=== PATIENT | female | born 1980 | race Hispanic/Latino ===

== ENCOUNTER 2017-07-13 22:20 | Inpatient (IN) ==
[2017-07-13] MEDS ORDERED: RINGER'S SOLUTION,LACTATED 1,000 ML IV ONE (22:43)
[2017-07-13] MEDS ORDERED: OXYTOCIN/DEXTROSE 5%-WATER 30 UNITS/500 ML BAG IV ONE (22:43)
[2017-07-13] MEDS ORDERED: PENICILLIN G POTASSIUM 5 MILLIONUNT in DEXTROSE 5 % IN WATER 100 ML IV ONE ×2 (22:43)
[2017-07-14] MEDS: PENICILLIN G POTASSIUM 2.5 MILLIONUNT in DEXTROSE 5 % IN WATER 100 ML IV SCH ×12 (03:03→22:45)
[2017-07-14] MEDS: METHYLDOPA 250 MG TABLET PO SCH ×2 (07:08→10:59)
[2017-07-14] MEDS ORDERED: INSULIN REGULAR HUMAN REC 100 UNITS in NORMAL SALINE 100 ML IV PRN (10:27)
[2017-07-14] MEDS ORDERED: HUM INSULIN NPH/REG INSULIN HM 100 UNIT/ML VIAL SC ONE (11:00)
[2017-07-14] MEDS ORDERED: NALOXONE HCL 1 MG/1 ML SYRG IV PRN (13:12)
[2017-07-14] MEDS ORDERED: ONDANSETRON HCL/PF 2 MG/ML VIAL IV PRN (13:12)
[2017-07-14] MEDS ORDERED: fentaNYL CITRATE/PF 50 MCG/ML AMPUL IT SCH (13:15)
--- NOTE | 2017-07-14 13:24 | OR ---
Anesthesia Pre Procedure Eval Date of Service: 07/14/17 Pre Procedure Evaluation: Last Vital Signs Temp Pulse 104 H 07/14/17 07:08 Resp BP 161/96 07/14/17 07:08 Pulse Ox Anesthesia Pre Procedure Evaluation Heart Rate: 112 Blood Pressure: 139/85 Temperature: 37C Respiratory Rate: 18 SaO2: 97 DATE: 07/14/2017 TIME: 1320 INDICATIONS: Active labor, labor pain PAST MEDICAL HISTORY: Primipara patient in active labor requesting labor analgesia History of GERD: No History of smoking:No History of sleep apnea:No EXAM: Heart regular; lungs clear ASSESSMENT OF MEDICAL STATUS: Appropriate candidate for labor analgesia PLANNED PROCEDURE: Combination spinal epidural for labor analgesia Home Medications: HOME MEDICATIONS Iron,Carbonyl/Ascorbic Acid [Fe C Tablet] 65 mg PO DAILY 07/13/17 [Last Taken ] Cmb#95/Iron/FA/Dha [ + Dha Combo Pack] 1 tab PO DAILY 07/13/17 [Last Taken 07/12/17] metFORMIN HCL [Metformin HCl] 500 mg PO BID 07/13/17 [Last Taken 07/13/17 16:00] Ascorbic Acid [Vitamin C] 1,000 mg PO DAILY 07/14/17 [Last Taken 07/13/17] Insulin NPH Human Isophane [Humulin N] 55 units SQ DAILY 07/14/17 [Last Taken 19:30] Methyldopa 500 mg PO TID 07/14/17 [Last Taken 07/13/17 16:00]
--- NOTE | 2017-07-14 13:44 | OR ---
Anesthesia Procedure Note - Anesthesia Procedure Note Date of Service: 07/14/17 Narrative: Vital Signs - Last Taken Temp Pulse 104 H 07/14/17 07:08 Resp BP 161/96 07/14/17 07:08 Pulse Ox 07/14/17 13:41 ANESTHESIA PROCEDURE NOTE Date of Procedure: 07/14/2017 Time of procedure: 1320. Performed by: EDGAR Medeiros CRNA, MSN Certified Anesthesiologist Assistant: Mell FROST. Preprocedure diagnosis: Active labor, labor pain. Post procedure diagnosis: Same. Procedure:Epidural for labor analgesia L34. Indications: Labor pain. Findings: See below. Details of the procedure: The patient was placed on the side of the bed in sitting positionand prepped with DuraPrep then draped in a sterile fashion. Lidocaine 1% was infiltrated to the skin and subcutaneous tissues at the level of theL3,4 interspace. An 18-gauge Touhy needle was used to approach the epidural space with loss of resistance technique. Once loss of resistance was achieved a 27-gauge spinal needle was passed through the epidural needle and CSF was contacted. After CSF returned, 20 mcg of fentanyl was injected in the spinal needle was removed the epidural catheter was then threaded approximately 4 cm in the epidural needle was removed. The catheter was taped in place and after careful aspiration 3 mL of 1.5% lidocaine with 1-200,000 epinephrine was injected without change in maternal heart rate or sensorium. . EBL: Minimal. Fluids: N/A. Specimen: N/A. Post procedure condition: The patient tolerated the procedure well with good relief. No complications were noted. Thank you for this consultation. Allen Curiel CRNA, BOWL TOPPER, MSN
[2017-07-14] MEDS: BUPIVACAINE HCL/0.9 % NACL/PF 250 ML EP PRN (13:47)
[2017-07-14] MEDS ORDERED: RINGER'S SOLUTION,LACTATED 1,000 ML IV PRN (15:10)
[2017-07-14] MEDS: DEXTROSE 5%-LACTATED RINGERS 1,000 ML IV PRN (17:11)
[2017-07-14 17:27] LABS: Urine Bilirubin Negative (NEGATIVE); Urine Blood 50 /ul (NEGATIVE); Urine Ketone Negative (NEGATIVE); Urine Nitrite Negative (NEGATIVE); Urine Protein Negative (NEGATIVE); Urine Specific Gravity <=1.005 SP.GR. (1.005-1.010); Urine Urobilinogen Normal (NORMAL)
[2017-07-14 17:28] LABS: Urine Appearance Clear (CLEAR); Urine Color Yellow
--- NOTE | 2017-07-14 18:44 | PN ---
Subjective - Date and Time Seen Date: 07/14/17 Time: 18:35 Objective - Vitals Vitals: Last Vital Signs Temp Pulse 104 H 07/14/17 07:08 Resp BP 161/96 07/14/17 07:08 Pulse Ox Patient comfortable with epidural Vital signs stable. Blood sugar 91 at 1645 Pitocin at 4 mu/min. FHT: 130 baseline, reassuring. Earlier this afternoon patient had late decelerations and prolonged deceleration requiring Pitocin to be shut off. Contractions difficult to assess until IUPC placed, appeared to be q 2-3 min Cervix: 3/90/-3 - no change since 14:30. PROM at 2145 last p.m. Impression: Intrauterine at 37-2/7 weeks Pitocin augmentation of labor for premature ruptured membranes. Gestational diabetes - well controlled on insulin. Chronic hypertension - well controlled on antihypertensives. Morbid obesity - stable. GBS positive - s/p PCN x 5 doses Plan: IUPC placed because of difficulty monitoring contractions and patient's poor progress. Will monitor closely for signs of chorioamnionitis/ endometritis. Adjust Pitocin as necessary to ensure adequate contractions. - Abnormal Lab Findings Abnormal Lab Findings: Abnormal Lab Results 07/14/17 Range/Units Unknown Urine Blood 50 H (NEGATIVE) /ul Cauti Physician Documentation - Urinary Catheter Management Urethral ([place]) Date of Insertion: 07/14/17 Time of Insertion: 14:45
[2017-07-15] MEDS: DEXTROSE 5%-LACTATED RINGERS 1,000 ML IV PRN (01:38)
[2017-07-15] MEDS: PENICILLIN G POTASSIUM 2.5 MILLIONUNT in DEXTROSE 5 % IN WATER 100 ML IV SCH ×4 (02:50→06:15)
[2017-07-15] MEDS: BUPIVACAINE HCL/0.9 % NACL/PF 250 ML EP PRN (06:29)
[2017-07-15] MEDS ORDERED: ACETAMINOPHEN 500 MG TABLET PO ONE (06:30)
--- NOTE | 2017-07-15 08:44 | PN ---
Herb Note - Interim Date: 07/15/17 Time: 08:38 Narrative: 07/15/17 08:38 Patient is now complete. Vital signs stable tracing showed some questionable late decelerations earlier but now reassuring Because patient is exhausted we'll let her labor down and then began trial pushing.
[2017-07-15] MEDS: METHYLDOPA 250 MG TABLET PO SCH ×2 (12:10→17:11)
[2017-07-15] MEDS ORDERED: SENNOSIDES 8.6 MG TABLET PO PRN (13:26)
[2017-07-15] MEDS ORDERED: oxyCODONE HCL/ACETAMINOPHEN 1 TAB TABLET PO PRN ×2 (13:26)
[2017-07-15] MEDS ORDERED: BENZOCAINE/MENTHOL 81 SPRAY CAN TP PRN (13:26)
[2017-07-15] MEDS ORDERED: BISACODYL 10 MG SUPP.RECT RC PRN (13:26)
[2017-07-15] MEDS ORDERED: OXYTOCIN/DEXTROSE 5%-WATER 30 UNITS/500 ML BAG IV ONE (13:26)
[2017-07-15] MEDS ORDERED: GLYCERIN/WITCH HAZEL LEAF 40 APPL BOX TP PRN (13:26)
[2017-07-15] MEDS ORDERED: HYDROCORTISONE 30 APPL TUBE TP PRN (13:26)
[2017-07-15] MEDS ORDERED: INSULIN LISPRO 100 UNITS/ML VIAL SC SCH (13:45)
[2017-07-15] MEDS: IBUPROFEN 800 MG TABLET PO PRN (13:53)
--- NOTE | 2017-07-15 14:05 | OR ---
Operative Report - Dictated Report Narrative: Spontaneous vaginal delivery of viable male at 1105 on 07/15/2017 with Apgars 6 and 9, weighing 3498 g. Nuchal cord 3 with body cord 1. Cord clamping delayed approximately 1 minute Placenta delivered complete, intact, with three vessel cord Estimated blood loss: 150 mL Anesthesia: epidural Lacerations: 4 cm second degree vaginal laceration repaired with 0 Vicryl and 3- 0 Vicryl Rapide. 3 cm first-degree right labial laceration repaired with 4-0 Vicryl. Small arterial bleeding on the first-degree vaginal laceration required 2 figure -of-eight sutures to control bleeding.
[2017-07-15] MEDS ORDERED: INSULIN NPH HUMAN ISOPHANE 100 UNITS/ML VIAL SC SCH (17:00)
[2017-07-15] MEDS: metFORMIN HCL 500 MG TABLET PO SCH (17:10)
[2017-07-15] MEDS: DOCUSATE SODIUM 100 MG CAPSULE PO SCH (20:06)
[2017-07-16] MEDS: IBUPROFEN 800 MG TABLET PO PRN (08:33)
[2017-07-16] MEDS: DOCUSATE SODIUM 100 MG CAPSULE PO SCH ×2 (08:33→21:02)
[2017-07-16] MEDS: METHYLDOPA 250 MG TABLET PO SCH ×3 (08:34→17:55)
[2017-07-16] MEDS: metFORMIN HCL 500 MG TABLET PO SCH ×2 (08:35→17:54)
[2017-07-16] MEDS: FERROUS SULFATE PO SCH (08:36)
--- NOTE | 2017-07-16 08:59 | PN ---
Subjective - Date and Time Seen Date: 07/16/17 Time: 08:55 Objective - Vitals Vitals: Last Vital Signs Temp 36.9 C 07/16/17 07:30 Pulse 102 H 07/16/17 08:34 Resp 20 07/16/17 07:30 BP 152/84 07/16/17 08:34 Pulse Ox 97 07/16/17 07:30 Patient denies complaints. Breast-feeding Lochia wnl Abdomen - soft, nontender Uterus - firm, at umbilicus - 1 No calf tenderness Impression: day #1 - s/p spontaneous vaginal delivery. Chronic hypertension-stable. Insulin-dependent type II diabetic-stable. Morbid obesity. Advanced maternal age. Plan: Continue routine care Cauti Physician Documentation - Urinary Catheter Management Urethral ([place]) Date of Insertion: 07/14/17 Time of Insertion: 14:45 Date of Removal: 07/15/17 Time of Removal: 10:35
[2017-07-16] MEDS: PRENATAL VITS96/IRON FUM/FOLIC 1 TAB TABLET PO SCH (09:32)
[2017-07-16] MEDS: ASCORBIC ACID 500 MG TABLET PO SCH (09:32)
[2017-07-17] MEDS: metFORMIN HCL 500 MG TABLET PO SCH ×2 (08:45→17:26)
[2017-07-17] MEDS: METHYLDOPA 250 MG TABLET PO SCH ×3 (08:45→22:25)
[2017-07-17] MEDS: PRENATAL VITS96/IRON FUM/FOLIC 1 TAB TABLET PO SCH (08:48)
[2017-07-17] MEDS: DOCUSATE SODIUM 100 MG CAPSULE PO SCH ×2 (08:48→22:19)
[2017-07-17] MEDS: FERROUS SULFATE PO SCH (08:49)
[2017-07-17] MEDS: ASCORBIC ACID 500 MG TABLET PO SCH (08:49)
--- NOTE | 2017-07-17 09:35 | PN ---
Subjective - Date and Time Seen Date: 07/17/17 Time: 09:30 Objective - Vitals Vitals: Last Vital Signs Temp 36.8 C 07/17/17 09:03 Pulse 107 H 07/17/17 09:03 Resp 18 07/17/17 09:03 BP 170/96 07/17/17 09:16 Pulse Ox 98 07/17/17 09:03 Patient denies complaints. Breast-feeding Blood sugars under good control. One elevated blood pressure, but all the rest under good control. Lochia wnl Abdomen - soft, nontender Uterus - firm, at umbilicus - 2 No calf tenderness Impression: day #2 - s/p spontaneous vaginal delivery. Diabetes well controlled on current dose of metformin. Chronic hypertension well controlled on current dose of [place]. Advanced maternal age. Morbid obesity. Plan: Routine discharge instructions. Patient to follow-up in the office in 2 weeks for lunch sugar and blood pressure check. Preeclampsia precautions. Cauti Physician Documentation - Urinary Catheter Management Urethral ([place]) Date of Insertion: 07/14/17 Time of Insertion: 14:45 Date of Removal: 07/15/17 Time of Removal: 10:35
[2017-07-17 22:26] VITALS: BP 142/90
== END 2017-07-17 23:59 | disposition home or self-care (01) | DRG 774 ==
LOC: OBCLINIC 22:20 → OB 22:29
PROVIDERS: ADMIT Obstetrics & Gynecology; ATTEND Obstetrics & Gynecology
DX: O76 Abnormality in fetal heart rate and rhythm complicating labor and delivery; O99.02 Anemia complicating childbirth; O69.81X0 Labor and delivery complicated by cord around neck, without compression, not applicable or unspecified; Z3A.37 37 weeks gestation of pregnancy; D50.8 Other iron deficiency anemias; O42.02 Full-term premature rupture of membranes, onset of labor within 24 hours of rupture; Z68.42 Body mass index [BMI] 45.0-49.9, adult; E66.01 Morbid (severe) obesity due to excess calories; O99.824 Streptococcus B carrier state complicating childbirth; O99.214 Obesity complicating childbirth; O24.12 Pre-existing type 2 diabetes mellitus, in childbirth; O70.0 First degree perineal laceration during delivery; Z37.0 Single live birth; O10.02 Pre-existing essential hypertension complicating childbirth; O70.1 Second degree perineal laceration during delivery; E11.9 Type 2 diabetes mellitus without complications
CPT/HCPCS: 59025; 81003; 88307